=== PATIENT | female | born 1990 | race Caucasian/White ===

== ENCOUNTER 2020-08-23 04:44 | Emergency (ER) | payer OTHER ==
[~2020-08-23] VITALS: Ht 175.3 cm; Wt 70.3 kg
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
[2020-08-23] MEDS ORDERED: ONDANSETRON HCL/PF 4 MG/2 ML VIAL ONE (05:30)
[2020-08-23] MEDS ORDERED: ONDANSETRON HCL/PF 4 MG/2 ML VIAL IVP ONE (05:30)
[2020-08-23 05:35] LABS: BASOPHILS % (AUTO) 0.4 % (0.0-2.0); EOSINOPHILS % (AUTO) 1.6 % (0.0-6.0); HEMATOCRIT 23 % (33-45); LYMPHOCYTES # (AUTO) 1.3 /CMM (0.8-4.8); LYMPHOCYTES % (AUTO) 18.8 % (20.0-44.0); MEAN CORPUSCULAR HGB CONC 35 g/dl (31.0-36.0); MEAN CORPUSCULAR VOLUME 87 fL (82-100); MONOCYTES # (AUTO) 0.5 /CMM (0.1-1.30); MONOCYTES % (AUTO) 7.4 % (2.0-12.0); NEUTROPHILS # (AUTO) 4.9 /CMM (1.8-8.9); NEUTROPHILS % (AUTO) 71.8 % (43.0-81.0); PLATELET COUNT (AUTO) 272 /CMM (150-450); RED BLOOD CELL COUNT(AUTO) 2.61 MIL/uL (4.0-5.2); WHITE BLOOD COUNT (AUTO) 6.9 K/uL (4.3-11.0)
--- NOTE | 2020-08-23 06:00 | NUR ---
pt unable to provide urine sample, pt states shes too weak to walk to bathroom, bedpan provided. no output at this time
[2020-08-23 06:04] LABS: CALCIUM, SERUM 8.6 mg/dL (8.5-10.1); CARBON DIOXIDE 23 mmol/L (21-32); CHLORIDE 104 mmol/L (98-107); CREATININE 0.9 mg/dL (0.6-1.3); GLUCOSE 159 mg/dL (74-106); POTASSIUM 3.5 mmol/L (3.5-5.1); SODIUM SERUM 139 mmol/L (136-145); UREA NITROGEN, BLOOD 7 mg/dL (7-18)
[2020-08-23 06:13] LABS: ALANINE AMINOTRANSFERASE 20 U/L (12-78); ALBUMIN 3.3 g/dL (3.4-5.0); ALKALINE PHOSPHATASE 58 U/L (46-116); ASPARTATE AMINOTRANSFERASE 10 U/L (15-37); BILIRUBIN,DIRECT 0.1 mg/dL (0.0-0.2); BILIRUBIN,TOTAL 0.3 mg/dL (0.2-1.0); TOTAL PROTEIN, SERUM 5.8 g/dL (6.4-8.2)
[2020-08-23] MEDS ORDERED: IV NS 0.9% 1,000 ML IV ONE (06:30)
--- NOTE | 2020-08-23 06:42 | NUR ---
FIELD SPECIALIST TO DR. HOWARD FOR RECTAL EXAM. CALLED LAB FOR SKEIN MERCERIZING MACHINE OPERATOR FOR OCCULT BLOOD
[2020-08-23] MEDS ORDERED: LIDOCAINE VISCOUS 2% UD 15 ML UDC ONE (06:56)
[2020-08-23] MEDS ORDERED: FAMOTIDINE/PF INJ 20 MG/2 ML VIAL IV ONE ×2 (06:56→07:00)
--- NOTE | 2020-08-23 06:56 | NUR ---
Ignacio [facility] called per Dr Ma
[2020-08-23 07:00] LABS: THYROID STIMULATING HORMONE 5.258 uIU/mL (0.358-3.74)
[2020-08-23] MEDS ORDERED: MAG HYDROX/AL HYDROX/SIMETH 30 ML UDC PO ONE (07:00)
[2020-08-23] MEDS ORDERED: LIDOCAINE VISCOUS 2% UD 15 ML UDC MM ONE (07:00)
--- NOTE | 2020-08-23 07:13 | NUR ---
covid swab sent
--- NOTE | 2020-08-23 07:20 | NUR ---
orthostatic vs done, result negative. dr rodgers aware. vs documented
[2020-08-23 07:33] LABS: OCCULT BLOOD STOOL POSITIVE (NEGATIVE)
--- NOTE | 2020-08-23 08:03 | NUR ---
REPORT GIVEN TO ADEN TEE AT [facility]. ACCEPTED BY DR. MARINELLI.
--- NOTE | 2020-08-23 08:44 | NUR ---
UPDATED ADEN TEE OF [facility] FOR RAPID COVID RESULT
--- NOTE | 2020-08-23 08:56 | NUR ---
PATIENT WAS ABLE TO GIVE A URINE SAMPLE AND SENT TO LAB. EMT CAME, PAPERWORKS AND VERBAL REPORT GIVEN TO DOG HANDLER OR TRAINER. PATIENT A/OX4, IN STABLE CONDITION. VSS.
[2020-08-23 08:57] LABS: BILIRUBIN,URINE Negative (NEGATIVE); COLOR,URINE YELLOW (YELLOW); LEUKOCYTE ESTERASE ,URINE Small (NEGATIVE); NITRITE, URINE Negative (NEGATIVE); PH,URINE 5.5 (5.0-8.0); PROTEIN,URINE Negative (NEGATIVE); UGLUCOSE Negative (NEGATIVE); UROBILINOGEN,URINE 0.2 EU/dL (0.2)
[2020-08-23 08:58] VITALS: BP 125/76
[2020-08-23 09:09] LABS: BACTERIA,URINE Moderate /HPF (None Seen); SQUAMOUS EPITHELIAL CELL,UR Moderate /HPF (None Seen)
[2020-08-23 09:50] LABS: ALCOHOL, BLOOD < 3 mg/dL (0-0)
== END 2020-08-23 08:59 | disposition short-term general hospital (02) ==
LOC: ER 04:55
DX: R55 Syncope and collapse (principal); K92.2 Gastrointestinal hemorrhage, unspecified; R11.2 Nausea with vomiting, unspecified; S02.5XXA Fracture of tooth (traumatic), initial encounter for closed fracture; S01.81XA Laceration without foreign body of other part of head, initial encounter; W18.39XA Other fall on same level, initial encounter; Y93.E8 Activity, other personal hygiene; Y92.012 Bathroom of single-family (private) house as the place of occurrence of the external cause; Y99.8 Other external cause status; R10.9 Unspecified abdominal pain; D64.9 Anemia, unspecified; Z20.822 Contact with and (suspected) exposure to COVID-19
CPT/HCPCS: 12011; 36415; 71045; 80048; 80076; 80307; 80320; 81001; 82272; 84439; 84443; 84484; 84702; 84703; 85025; 85730; 86850; 87086; 87426; 93005; 96361; 96374; 96375; 99285; A6403; C9803; J2405; J3490; J7030; G0480

== ENCOUNTER 2021-06-14 16:15 | Inpatient (IN) | payer BC, OTHER ==
[~2021-06-14] VITALS: Ht 175.3 cm; Wt 68.9 kg
[2021-06-14] MEDS ORDERED: IV NS 0.9% 1,000 ML BAG IV ONE (16:30)
[2021-06-14] MEDS ORDERED: ONDANSETRON HCL/PF 4 MG/2 ML VIAL IVP ONE (16:30)
[2021-06-14] MEDS ORDERED: MORPHINE SULFATE INJ 2 MG/ML DISP.SYRIN IV ONE ×2 (16:30→17:30)
[2021-06-14] MEDS ORDERED: MORPHINE SULFATE INJ 4 MG/ML DISP.SYRIN ONE ×2 (16:48→17:31)
[2021-06-14] MEDS ORDERED: ONDANSETRON HCL/PF 4 MG/2 ML VIAL ONE ×2 (16:48→17:13)
--- NOTE | 2021-06-14 16:48 | NUR ---
TERI RA78 "Abdominal Pain/nausea/vomiting. On menses started today". PT AAOX4, RR EVEN & UNLABORED. DENIES CP, SOB, DIZZINESS AT THIS TIME. PT SEEN & EVAL'D BY LORELEI SMITH. WILL CONT TO MONITOR.
[2021-06-14] MEDS ORDERED: TRAMADOL HCL 50 MG TABLET ONE (16:55)
--- NOTE | 2021-06-14 16:55 | NUR ---
MEDICATED PER PA'S ORDER, PT SMILEY WELL. WILL CONT TO MONITOR.
[2021-06-14 16:56] LABS: BASOPHILS % (AUTO) 0.2 % (0.0-2.0); EOSINOPHILS % (AUTO) 0.2 % (0.0-6.0); HEMATOCRIT 38 % (33-45); HEMOGLOBIN 12.6 g/dL (11.5-14.8); LYMPHOCYTES # (AUTO) 0.7 K/uL (0.8-4.8); LYMPHOCYTES % (AUTO) 5.3 % (20.0-44.0); MEAN CORPUSCULAR HGB CONC 33 g/dl (31.0-36.0); MEAN CORPUSCULAR VOLUME 88 fL (82-100); MONOCYTES # (AUTO) 0.5 K/uL (0.1-1.30); MONOCYTES % (AUTO) 3.4 % (2.0-12.0); NEUTROPHILS # (AUTO) 12.8 K/uL (1.8-8.9); NEUTROPHILS % (AUTO) 90.9 % (43.0-81.0); PLATELET COUNT (AUTO) 303 K/uL (150-450); RED BLOOD CELL COUNT(AUTO) 4.28 MIL/uL (4.0-5.2)
[2021-06-14] MEDS ORDERED: TRAMADOL HCL 50 MG TABLET PO ONE (17:00)
[2021-06-14 17:16] LABS: CALCIUM, SERUM 9.3 mg/dL (8.5-10.1); POTASSIUM 3.6 mmol/L (3.5-5.1)
[2021-06-14 17:23] LABS: ALBUMIN 4.5 g/dL (3.4-5.0); BILIRUBIN,DIRECT 0.1 mg/dL (0.0-0.2); BILIRUBIN,TOTAL 0.5 mg/dL (0.2-1.0); TOTAL PROTEIN, SERUM 7.9 g/dL (6.4-8.2)
[2021-06-14] MEDS ORDERED: ONDANSETRON HCL/PF 4 MG/2 ML VIAL IV ONE (17:30)
[2021-06-14] MEDS ORDERED: IV NS 0.9% 250 ML IV ONE (17:58)
[2021-06-14] MEDS ORDERED: IOHEXOL-300 100 ML VIAL IV ONE (17:58)
[2021-06-14] MEDS ORDERED: CT SWABBABLE VALVE TRANS SET 1 EA INFUS.SET MC ONE (17:58)
[2021-06-14 19:19] LABS: BILIRUBIN,URINE NEGATIVE (NEGATIVE); COLOR,URINE YELLOW (YELLOW); LEUKOCYTE ESTERASE ,URINE NEGATIVE (NEGATIVE); NITRITE, URINE NEGATIVE (NEGATIVE); PROTEIN,URINE NEGATIVE (NEGATIVE); UGLUCOSE NEGATIVE (NEGATIVE); UROBILINOGEN,URINE 0.2 EU/dL (0.2)
[2021-06-14] MEDS ORDERED: KETOROLAC TROMETHAMINE INJ 30 MG/ML VIAL IV ONE (19:30)
[2021-06-14 19:50] LABS: BACTERIA,URINE None seen /HPF (None Seen); RBC,URINE 21-50 /HPF (0-2); SQUAMOUS EPITHELIAL CELL,UR 0-2 /HPF (None Seen); WBC,URINE 0-2 /HPF (0-3)
[2021-06-14] MEDS ORDERED: PROCHLORPERAZINE EDISYLATE 10 MG/2 ML VIAL ONE (20:24)
[2021-06-14] MEDS ORDERED: diphenhydrAMINE HCL 50 MG/ML VIAL ONE (20:24)
[2021-06-14] MEDS ORDERED: KETOROLAC TROMETHAMINE INJ 30 MG/ML VIAL ONE (20:24)
[2021-06-14] MEDS ORDERED: PROCHLORPERAZINE EDISYLATE 10 MG/2 ML VIAL IVP ONE (20:30)
[2021-06-14] MEDS ORDERED: diphenhydrAMINE HCL 50 MG/ML VIAL IV ONE (20:30)
--- NOTE | 2021-06-14 20:40 | NUR ---
MRSA SWAB COLLECTED AND SENT TO LAB. PATIENT'S BELONGINGS LIST DONE.
[2021-06-15] MEDS ORDERED: MAG HYDROX/AL HYDROX/SIMETH 30 ML UDC PO PRN (00:30)
[2021-06-15] MEDS ORDERED: MAGNESIUM HYDROXIDE 30 ML UDC PO PRN (00:30)
[2021-06-15] MEDS ORDERED: ONDANSETRON HCL/PF 4 MG/2 ML VIAL IVP PRN (00:30)
[2021-06-15] MEDS ORDERED: ACETAMINOPHEN 325 MG TABLET PO PRN (00:30)
[2021-06-15] MEDS ORDERED: HYDROCODONE/APAP 5/325MG TABLET PO PRN (00:30)
[2021-06-15] MEDS ORDERED: IV D5/0.45 NACL 1,000 ML IV PRN (00:30)
[2021-06-15] MEDS ORDERED: ZOLPIDEM TARTRATE 5 MG TABLET PO PRN (00:30)
--- NOTE | 2021-06-15 01:21 | NUR ---
PT SLEEPING COMFORTABLY BREATHING EVEN AND UNLABORED. PT ON MONITOR AND ALL V/S STABLE AT THIS TIME. WILL CONTINUE TO MONITOR APPROPRIATELY.
--- NOTE | 2021-06-15 03:04 | NUR ---
[facility] 321-1
--- NOTE | 2021-06-15 04:54 | NUR ---
REPORT GIVEN TO VARINDER
--- NOTE | 2021-06-15 05:03 | NUR ---
ADMISSION NOTES RECEIVED PT VIA GURNEY TRANSPORTED BY EMT. PT AMBULATED FROM GURNEY TO BED, STEADY. AOx4. ABLE TO MAKE NEEDS KNOWN. ON RA AND TOLERATING WELL. NO SOB NOTED. NO S/SX OF RESPIRATORY DISTRESS NOTED. IV ACCESS IN R AC#20G. IV IS INTACT, PATENT, AND FLUSHING WELL. SAFETY PRECAUTIONS IN PLACE: BED IN LOWEST, LOCKED POSITION, SIDERAILS UPx2, AND BRAKES ON. TABLE AND CALL LIGHT WITHIN REACH. WILL CONTINUE TO MONITOR.
--- NOTE | 2021-06-15 05:09 | NUR ---
PT TRANSPORTED TO [facility] WITHOUT INCIDENT. ALL BELONGINGS AND PAPERWORK TRANSPORTED WITH PATIENT. ALL V/S STABLE AT TIME OF TRANSFER.
[2021-06-15 05:41] VITALS: BP 97/54
[2021-06-15] MEDS ORDERED: PANTOPRAZOLE 40 MG TABLET.DR PO SCH (07:30)
--- NOTE | 2021-06-15 07:30 | NUR ---
MS RN CLOSING NOTES PT ASLEEP, IN BED, AWAKENS TO VERBAL STIMULI. AOx4. ABLE TO MAKE NEEDS KNOWN. ON RA AND TOLERATING WELL. NO SOB NOTED. NO S/SX OF RESPIRATORY DISTRESS NOTED. IV ACCESS IN R AC#20G. IV IS INTACT, PATENT, AND FLUSHING WELL. ALL NEEDS MET. PT KEPT CLEAN AND DRY. SAFETY PRECAUTIONS IN PLACE: BED IN LOWEST, LOCKED POSITION, SIDERAILS UPx2, AND BRAKES ON. TABLE AND CALL LIGHT WITHIN REACH. WILL ENDORSE TO ONCOMING SHIFT FOR JEANNE.
--- NOTE | 2021-06-15 07:30 | NUR ---
RN NOTES PATIENT RESTING IN BED, EYES CLOSED, ABLE TO BE AWAKENED. A/O X4. BREATHING EVEN AND UNLABORED ON ROOM AIR, NO DISTRESS NOTED. IV LINE INTACT AND PATENT. NO COMPLAINT OF NAUSEA/VOMITING AT THIS TIME; SLIGHT ABDOMINAL CRAMP VERBALIZED BY PATIENT BUT ABLE TO TOLERATE AT THIS TIME. AMBULATORY W/ STEADY GAIT. SAFETY MEASURES IN PLACE. WILL CONTINUE TO MONITOR.
--- NOTE | 2021-06-15 08:12 | NUR ---
RN NOTES PATIENT REQUESTED FOR [facility]; INFORMED DIETARY AND WILL DELIVER TO PATIENT.
[2021-06-15 08:23] VITALS: BP 93/37
[2021-06-15] MEDS ORDERED: TEST200V3 IM (08:28)
[2021-06-15] MEDS ORDERED: ALBU8.5H8 IH (08:29)
--- NOTE | 2021-06-15 09:45 | NUR ---
RN NOTES URINE SPECIMEN COLLECTED FOR DRUG SCREEN AND PLACED IN REFRIGERATOR.
--- NOTE | 2021-06-15 10:27 | NUR ---
RN NOTES PATIENT SEEN BY DR. ROPER TODAY AND INFORMED ABOUT PLAN OF CARE.
[2021-06-15] MEDS ORDERED: ONDA4TAB5 PO (10:51)
--- NOTE | 2021-06-15 11:14 | NUR ---
RN NOTES PATIENT REQUESTED FOR [facility] GI CONSULT TO BE SCHEDULED SOONER THAN AUG 2021; INFORMED VESTA, ENDOCRINOLOGY SPECIALIST, OF SITUATION. PER CM, PATIENT HAS TO CONTACT [facility] AND LET CM KNOW TO FAX CLINICALS AND RECOMMENDATIONS NEEDED. PATIENT MADE AWARE AND WILL TRY TO CONTACT [facility]. CM NUMBER GIVEN TO PATIENT.
--- NOTE | 2021-06-15 11:55 | NUR ---
SS Consult: SS consult for homelessness. Pt. Is a 30-year-old female. Pt. demonstrates adequate insight to the reason for hospitalization. Per pt., she was brought to hospital due to vomiting. Pt. was oriented x4, alert, and cooperative. During interview, pt. was capable of following directions, made appropriate eye-contact, and appeared well-groomed. Pt.s speech was at a normal rate. SW explored pt.s Hx of mental health and substance abuse. Pt. reported no Hx of substance abuse, suicidal or homicidal. Pt. denies auditory hallucinations, visual hallucinations, paranoia, or delusions. Per pt., she has anxiety and goes to therapy once a week. Pt. mentioned that it helps her. ALVIN explored pt.s living situation. Per pt., she lives alone [[id number] [place] [address]]. Per pt., she reports having adequate support from friends and neighbors. ALVIN explored pt.s financial status. Per pt., she is currently working and is financially stable. Plan: ALVIN provided available resources and pt. denied. Per pt., she is not homeless and is safe to go home.
--- NOTE | 2021-06-15 14:04 | NUR ---
RN NOTES PATIENT SEEN BY MD TODAY W/ ORDER FOR DISCHARGE TO HOME. DISCHARGE INSTRUCTION AND EDUCATION GIVEN TO PATIENT, VERBALIZED UNDERSTANDING. MEDS SENT ELECTRONICALLY. DISCHARGE FORM AND BELONGINGS LIST FORM SIGNED BY PATIENT AND ALL BELONGINGS ACCOUNTED FOR. NAME ARMBAND AND IV LINE REMOVED. NO SKIN ISSUES NOTED. PATIENT IS AMBULATORY AND ACCOMPANIED TO THE LOBBY. PICKED UP BY FRIEND VIA PRIVATE CAR. CHARGE NURSE AND MD AWARE OF DISCHARGE.
== END 2021-06-15 13:30 | disposition home or self-care (01) | DRG 392 ==
LOC: ER 16:19 → TRANSITION 06-15 01:15 → MED 06-15 03:19
PROVIDERS: ATTEND Internal Medicine
DX: R11.2 Nausea with vomiting, unspecified (principal); R10.9 Unspecified abdominal pain; Z20.822 Contact with and (suspected) exposure to COVID-19; Z90.49 Acquired absence of other specified parts of digestive tract; Z85.038 Personal history of other malignant neoplasm of large intestine; D72.829 Elevated white blood cell count, unspecified
CPT/HCPCS: 36415; 76856-TC; 80048-TC; 80076-TC; 81001; 84702-TC; 84703-TC; 85025-TC; 85730-TC; 87081-TC; C9803; G0378; J0780; J1200; J1885; J2270; J2405; J3490; J7030; J7050; Q9967